=== PATIENT | female | born 1995 | race Caucasian/White ===

== ENCOUNTER 2018-04-13 21:20 | Emergency (ER) | payer MEDICAID ==
[~2018-04-13] VITALS: Ht 154.9 cm; Wt 108.0 kg
[~2018-04-13 21:20] MED LIST: AFRIN; DIPH-518 PO; GUAI120015 PO
[2018-04-13] MEDS ORDERED: azithromycin 250mg tablet PO ONE (23:15)
[2018-04-13] MEDS ORDERED: acetaminophen 325mg tablet PO ONE (23:15)
[2018-04-13] MEDS ORDERED: sulfamethoxazole/trimethoprim DS (800/160mg) tablet PO ONE (23:30)
[2018-04-13] MEDS ORDERED: IBUP-1984 PO (23:37)
[2018-04-13] MEDS ORDERED: SULF1TAB49 PO (23:37)
[2018-04-13 23:48] VITALS: BP 158/94
== END 2018-04-13 23:49 | disposition home or self-care (01) ==
LOC: ER 21:20
DX: H66.92 Otitis media, unspecified, left ear (principal); J02.9 Acute pharyngitis, unspecified; R42 Dizziness and giddiness; R51 Headache; Z88.0 Allergy status to penicillin; Z88.5 Allergy status to narcotic agent; Z88.1 Allergy status to other antibiotic agents
CPT/HCPCS: 99283